=== PATIENT | male | born 1990 | race Caucasian/White ===

== ENCOUNTER 2019-11-22 20:11 | Inpatient (IN) | payer BC ==
[~2019-11-22] VITALS: Ht 175.3 cm; Wt 77.1 kg
--- NOTE | 2019-11-22 20:20 | NUR ---
LETHARGIC PATIENT IS RECIEVED FROM AMBULANCE UNIT AND DISORIENTED AT THE MOMENT WITH VOMIT AND BLOOD COVERING HIS MOUTH. BLOOD DUE TO PATIENT BITING DOWN ON TOUNGUE DURING SEIZURE EPISODE. PARAMEDICS SAY THAT HE STARTED CONVULSING ABOUT AN HOUR AGO IN HIS HOTEL ROOM AND THEY HAVE NO MORE INFORMATION ON THE PATIENT. PATIENT HAS IV LINE ON RIGHT HAND WITH IVF 0.9% NACL AT 100 ML. PATIENT IS RECIEVED WITH NON REBREATHING MASK AT 100%. PATIENT IS PLACED IN BED WITH CARIDAC MONITOR AND OXIMETRY WITH RAILINGS UP. CASE IS REPORTED TO DR. MICHELE. PATIENT REMAINS UNDER OBSERVATION FOR ANY CHANGES IN HIS CONDITION.
--- NOTE | 2019-11-22 21:17 | NUR ---
1942 PTE MASCULINO LETARGICO EN COMPANIA DE FAMILIAR ES EVALUADO POR . SE ORIENTA A FAMILIAR SOBRE ORDENES DE TRATAMIENTO REFIERE ENTENDER. CANALIZA PTE BAJO MEDIDAS ASEPTICAS,GONZALEZ ORDEN MEDICA. SE ADMINISTRAN MEDICAMENTOS, BAJO MEDIDAS ASEPTICAS, GONZALEZ ORDEN MEDICA. SE NOTIFICA A PERSONAL DE CT PARA ESTUDIO. 2052 SE COLECTAN MUESTRAS DE LABORATORIO, BAJO MEDIDAS ASEPTICAS, GONZALEZ ORDN MEDICA. SE ROTULAN Y ENVIAN A LABORATORIO. 2099 PTE PRESENTA EPISODIO DE CONVULSION, SE NOTIFICA A , EL CUAL ORDENA ADMINISTRAR ATIVAN 2MG IV STAT. 2104 SE ADMINISTRA MEDICAMENTO, BAJO MEDIDAS ASEPTICAS, GONZALEZ ORDEN MEDICA. SE TRASLADA PTE A AREA DE CT PARA ESTUDIO.
--- NOTE | 2019-11-22 22:36 | NUR ---
PERSONAL DE TERAPIA RESPIRATORIA REALIZO ABG A PACIENTE.
--- NOTE | 2019-11-22 23:37 | NUR ---
SE ORIENTA A PACIENTE Y ACOMPANANTE SOBRE LA INSERCION DE SONDA NASOGASTRICA PARA LAVADO ESTOMACAL, REFIERE ENTENDER. SE INSERTA SONDA EN FOSA LT, PACIENTE NO COOPERA Y SE RETIRA SONDA. SE NOTIFICA A DR MICHELE QUIEN ORDENA NO CONTINUAR.
--- NOTE | 2019-11-23 01:41 | NUR ---
SE RE-ORIENTA FAMILIAR DE PTE SOBRE MUESTRAS PENDIENTES Y TX MEDICO A SEGUIR,REFIERE ENTENDER.
--- NOTE | 2019-11-23 07:42 | NUR ---
SE RECIBE PTE ALERTA Y ORIENTADO X3 EN IVETTE CON BARANDAS ELEVADAS. PTE CON H/L EL CUAL SE ENCUENTRA PATENTE Y NICOLE DE EDEMA, PTE CON IV FLUIDS COLOCADO, PENDIENTE A REPETICION DE LAB LUEGO DE TERMINAR IV FLUIDS. PTE SE CONTINUA MONITORIANDO POR CAMBIOS.
== END 2019-11-24 16:28 | disposition left against medical advice (07) | DRG 125 ==
LOC: ER 20:11 → SEC-K 11-23 11:31 → MEDI 11-23 11:31 → MEDJ 11-23 18:16 → MEDI 11-23 18:16
PROVIDERS: ADMIT Internal Medicine; ATTEND Internal Medicine
DX: H20.13 Chronic iridocyclitis, bilateral (principal); H54.10 Blindness, one eye, low vision other eye, unspecified eyes; F10.929 Alcohol use, unspecified with intoxication, unspecified